=== PATIENT | female | born 1980 | race Caucasian/White ===

== ENCOUNTER → 2017-07-17 12:21 | Outpatient (CLI) | payer OTHER, SELFPAY ==
--- NOTE | 2017-07-17 12:24 | US_ITS ---
STUDY: ULTRASOUND TRANSVAGINAL CLINICAL: Female, 37 years old. Bleeding. TECHNIQUE: Transabdominal and Transvaginal COMPARISON: 02/12/2006. FINDINGS: Normal uterine size measuring 8.1 x 6.0 x 3.8 cm in maximal craniocaudal dimension. There are no myometrial masses however myometrium appears slightly heterogeneous and mild leiomyomatous changes not excluded.. Normal endometrial thickness measuring 9 mm. Endometrial echoes are hyperechoic. There are no endometrial masses, and there is no fluid in the endometrial cavity. Nabothian cyst of the uterine cervix. Normal right ovary, measuring 2.9 x 2.4 x 1.7 cm. There are multiple follicles without a dominant cyst. Normal left ovary, measuring 4.9 x 4.3 x 2.5 cm. There are left ovarian cysts measuring 2.4 and 2.6 cm. There is mild free fluid in the pelvis. Polycystic ovary disease: No. US/Pelvic (Non ) IMPRESSION: Left ovarian cysts measuring as much as 2.6 cm. Recommend follow-up in one or 2 menstrual periods. Cannot exclude mild heterogeneity of the uterine myometrium but without focal fibroid. Electronically Signed: Arsh Ward MD at 13:48 EDT , Service support ,
--- NOTE | 2017-07-17 14:34 | US_ITS ---
STUDY: ULTRASOUND TRANSVAGINAL CLINICAL: Female, 37 years old. Bleeding. TECHNIQUE: Transabdominal and Transvaginal COMPARISON: 02/12/2006. FINDINGS: Normal uterine size measuring 8.1 x 6.0 x 3.8 cm in maximal craniocaudal dimension. There are no myometrial masses however myometrium appears slightly heterogeneous and mild leiomyomatous changes not excluded.. Normal endometrial thickness measuring 9 mm. Endometrial echoes are hyperechoic. There are no endometrial masses, and there is no fluid in the endometrial cavity. Nabothian cyst of the uterine cervix. Normal right ovary, measuring 2.9 x 2.4 x 1.7 cm. There are multiple follicles without a dominant cyst. Normal left ovary, measuring 4.9 x 4.3 x 2.5 cm. There are left ovarian cysts measuring 2.4 and 2.6 cm. There is mild free fluid in the pelvis. Polycystic ovary disease: No. US/Transvaginal Non- IMPRESSION: Left ovarian cysts measuring as much as 2.6 cm. Recommend follow-up in one or 2 menstrual periods. Cannot exclude mild heterogeneity of the uterine myometrium but without focal fibroid. Electronically Signed: Arsh Ward MD at 13:48 EDT , Service support ,
== END ==
PROVIDERS: Family Provider Family Medicine; PCP Family Medicine; Visit Provider Obstetrics & Gynecology
DX: N83.202 Unspecified ovarian cyst, left side (principal); N93.0 Postcoital and contact bleeding
CPT/HCPCS: 76830; 76856; 93976

== ENCOUNTER → 2017-08-01 18:41 | Outpatient (CLI) | payer OTHER, SELFPAY ==
[2017-08-05 13:23] LABS: HPV Reflexed? NOT INDICATED
== END ==
PROVIDERS: Family Provider Family Medicine; PCP Family Medicine; Visit Provider Obstetrics & Gynecology
DX: Z01.419 Encounter for gynecological examination (general) (routine) without abnormal findings (principal)
CPT/HCPCS: 88175; G0145

== ENCOUNTER 2018-04-01 12:15 | Outpatient (RCR) | payer OTHER, SELFPAY ==
--- NOTE | 2017-05-17 07:59 | MASS.EVAL ---
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 She presents today with symptoms of chronic tension headaches as well as muscle tension through her neck and shoulders. The symptoms have been present for many years. She also reports experiencing stress. She uses massage and health care legal assistant to manage the symptoms. Medications: Flonase Goals: Decrease Headaches Decrease Muscle Tension Improve Cervical Range of Motion The first treatment consisted of a deep tissue massage to the upper body focusing on the neck and shoulders. The patient had general muscle tension and knots throughout the neck, shoulders and interscapular are. She responded very well to treatment, reporting a decrease in muscle tension and stress after treatment. The patient is to be seen one time a month for a total of 10 massotherapy visits. Stephanie Rain LMT
--- NOTE | 2018-04-18 11:16 | MASS.DISCH ---
Massage Therapy Discharge Summary: Initial Evaluation: 05/16/2017 Diagnosis: Chronic tension headaches No. of Visits: Date of last visit: 04/01/2018 Goals: Decreased frequency and intensity of headaches Decreased muscle tension Improved cervical range of motion This patient is being discharged from our care at the [facility]. Thank you, Stephanie Rain LMT
== END 2018-04-01 19:00 | disposition home or self-care (01) ==
LOC: MASS 12:15
PROVIDERS: Family Provider Family Medicine; PCP Family Medicine; Visit Provider Family Medicine
DX: G44.229 Chronic tension-type headache, not intractable (principal)
CPT/HCPCS: 97124

== ENCOUNTER → 2018-11-20 11:22 | Outpatient (CLI) | payer OTHER, SELFPAY ==
[2018-11-26 15:16] LABS: HPV Reflexed? NOT INDICATED
== END ==
PROVIDERS: Visit Provider Obstetrics & Gynecology
DX: Z12.4 Encounter for screening for malignant neoplasm of cervix (principal)
CPT/HCPCS: 88175; G0145

== ENCOUNTER → 2019-04-15 10:06 | Outpatient (CLI) | payer OTHER, SELFPAY ==
--- NOTE | 2019-04-15 10:09 | BI_ITS ---
MAMMOGRAPHY - BILATERAL SCREENING REASON FOR EXAM: Female, 39 years old. Routine annual screening examination. PERTINENT HISTORY: Non-contributory. TECHNIQUE: Digital bilateral breast joesph (3D mammographic acquisition) in the CC and MLO projections. 2-D mediolateral oblique (MLO) and craniocaudad (CC) views of both breasts were obtained. CAD: Full Field Digital Mammography with Computer Added Detection was performed. COMPARISON: None. Baseline examination. FINDINGS: Breast Composition: There are scattered areas of fibroglandular density. There are no dominant masses or suspicious calcifications. No other significant abnormalities are identified. BI/SCREEN MAMM (CAD) W/JOESPH BILAT IMPRESSION: Negative screening mammogram. Yearly followup mammogram recommended. (A) ASSESSMENT CATEGORY: BIRADS Category 1: Negative. A letter regarding these results will be sent to the patient by the facility within 30 days. Approximately 10% of breast cancers are not detected by mammography. A normal mammogram should not delay biopsy of a clinically suspicious abnormality. [id number] Electronically Signed: Poncho Allison, at 12:31 EST , Service support ,
== END ==
PROVIDERS: Family Provider Family Medicine; PCP Family Medicine; Referring Provider Obstetrics & Gynecology; Visit Provider Obstetrics & Gynecology
DX: Z12.31 Encounter for screening mammogram for malignant neoplasm of breast (principal)
CPT/HCPCS: 77063; 77067

== ENCOUNTER 2019-04-16 10:45 | Outpatient (RCR) | payer OTHER, SELFPAY ==
--- NOTE | 2018-06-12 11:30 | MASS.EVAL ---
Massage Therapy Evaluation: INITIAL EVALUATION: DATE: 06/12/18 PT NAME: KATIE KHALIL : 1980 V#: [id number] REFERRING PHYS: DR. 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 SHE WAS REFERRED TO [facility] FOR A MASSOTHERAPY EVALUATION BY DR. MUNOZ WITH THE DIAGNOSIS OF HEADACHES AND NECK PAIN. SHE PRESENTS TODAY WITH SYMPTOMS OF PAIN IN HER RIGHT SIDE OF HER NECK THAT ENDS A HEADACHE. SHE REPORTS OF NO PAIN BESIDE THE HEADACHE BUT JUST MORE STIFFNESS AND TIGHTNESS IN THE NECK. THE SYMPTOMS DUE TO STRESS AND POSTURE. RATES HER OVERALL HEALTH TO BE IN GOOD CONDITION WITH NO LIMITATIONS DURING HER DAILY ACTIVITIES. IS TAKING MAGNESIUM, FLONASE, BIOTIN, AND ALLIGN MEDICATIONS. OBJECTIVE: THE FIRST TREATMENT CONSISTED OF A MODERATE-DEEP TISSUE UPPER BODY MASSAGE. I FOCUSED ON THE CERVICAL AND THORACIC PARASPINALS , SCALENES, UPPER TRAPEZIUM, LEVATOR, RHOMBOIDS, AND SUBOCCIPITALS. NECK STRETCHES, TRIGGER POINT THERAPY, AND MUSCLE STRIPPING WERE PERFORMED. ASSESSMENT: MUSCLE TENSION WAS HIGH ON THE RIGHT SIDE BETWEEN THE NECK AND UPPER SHOULDER BLADE. MOST TENDERNESS WAS THE SUBOCCIPITALS, AND LEVATOR. I FEEL OVERALL THE STRESS LEVEL AND TENSION IN THE MUSCLES RELEASED POST THE MASSAGE. I FEEL THAT IS GREAT CANDIDATE FOR MASSOTHERAPY AT THIS TIME. PLAN: THE PLAN OF CARE WAS REVIEWED WITH THE PATIENT. THE PATIENT IS TO BE SEEN IN TWO WEEKS THEN ON A REGULAR MONTHLY BASIS FOR ONE HOUR SESSIONS OF MASSOTHERAPY.
--- NOTE | 2018-06-12 11:45 | MASS.EVAL_ITS ---
Massage Therapy Evaluation: INITIAL EVALUATION: DATE: 06/12/18 PT NAME: KATIE KHALIL : 1980 V#: [id number] REFERRING PHYS: DR. 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 SHE WAS REFERRED TO [facility] FOR A MASSOTHERAPY EVALUATION BY DR. MUNOZ WITH THE DIAGNOSIS OF HEADACHES AND NECK PAIN. SHE PRESENTS TODAY WITH SYMPTOMS OF PAIN IN HER RIGHT SIDE OF HER NECK THAT ENDS A HEADACHE. SHE REPORTS OF NO PAIN BESIDE THE HEADACHE BUT JUST MORE STIFFNESS AND TIGHTNESS IN THE NECK. THE SYMPTOMS DUE TO STRESS AND POSTURE. RATES HER OVERALL HEALTH TO BE IN GOOD CONDITION WITH NO LIMITATIONS DURING HER DAILY ACTIVITIES. IS TAKING MAGNESIUM, FLONASE, BIOTIN, AND ALLIGN MEDICATIONS. OBJECTIVE: THE FIRST TREATMENT CONSISTED OF A MODERATE-DEEP TISSUE UPPER BODY MASSAGE. I FOCUSED ON THE CERVICAL AND THORACIC PARASPINALS , SCALENES, UPPER TRAPEZIUM, LEVATOR, RHOMBOIDS, AND SUBOCCIPITALS. NECK STRETCHES, TRIGGER POINT THERAPY, AND MUSCLE STRIPPING WERE PERFORMED. ASSESSMENT: MUSCLE TENSION WAS HIGH ON THE RIGHT SIDE BETWEEN THE NECK AND UPPER SHOULDER BLADE. MOST TENDERNESS WAS THE SUBOCCIPITALS, AND LEVATOR. I FEEL OVERALL THE STRESS LEVEL AND TENSION IN THE MUSCLES RELEASED POST THE MASSAGE. I FEEL THAT IS GREAT CANDIDATE FOR MASSOTHERAPY AT THIS TIME. PLAN: THE PLAN OF CARE WAS REVIEWED WITH THE PATIENT. THE PATIENT IS TO BE SEEN IN TWO WEEKS THEN ON A REGULAR MONTHLY BASIS FOR ONE HOUR SESSIONS OF MASSOTHERAPY.
--- NOTE | 2019-04-17 11:10 | MASS.DISCH ---
Massage Therapy Discharge Summary: DATE: 04/17/2019 V#: [id number] PT. NAME: KATIE KHALIL : 1980 REF PHYS: THE PATIENT WAS SEEN FOR MASSOTHERAPY EVALUATION ON 06/12/2018 WITH A DIAGNOSIS OF HEADACHES AND NECK PAIN. THE PATIENT WAS TREATED WITH 8 SESSIONS OF MASSAGE CONSISTING OF DEEP TISSUE TO THE UPPER BODY. HER GOALS OF TREATMENT WERE MET AND AT THIS TIME I AM DISCHARGING THE PATIENT FROM OUR CARE AT THE [facility] FOR 2019.
== END 2019-04-16 19:00 | disposition home or self-care (01) ==
LOC: MASS 10:45
PROVIDERS: Family Provider Family Medicine; PCP Family Medicine; Referring Provider Family Medicine; Visit Provider Family Medicine
DX: G44.229 Chronic tension-type headache, not intractable (principal)
CPT/HCPCS: 97124

== ENCOUNTER 2019-05-02 14:07 | Emergency (ER) | payer OTHER, SELFPAY ==
[2019-05-02 14:07] VITALS: BP 129/65; PULSE 76; RESP 18; TEMP 36.4; O2SAT 99; BMI 23.0
--- NOTE | 2019-05-02 14:28 | ED.DCSUM_ITS ---
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 There were no needles involved. She noticed there was redness/blood, so she presents for evaluation. She was wearing her contacts at the time. She denies any changes in her vision compared with normal, which is not perfect she states. She denies any other injury. Past Medical History - Allergies and Home Meds Allergies/Adverse Reactions: Allergies No Known Allergies Allergy (Verified 05/02/19 14:10) Primary Care Physician: Valentino Sotomayor MD [Primary Care Provider] - Past Medical History: None Smoking Status: Never smoker Review of Systems Eyes: Reports: - - right eye pain. Denies: Visual changes - right, Diplopia Gastrointestinal: Denies: Nausea, Vomiting Physical Exam Visual Acuity: bilateral: 20/20 - OD, OS, OU Eyelid: Normal inspection, No foreign body Right Conjunctiva/Sclera: No foreign body, Subconjunctival hemorrhage - minor, focal, just lateral to the cornea; no dye streaming Left Conjunctiva/Sclera: Normal inspection Right Cornea: Normal inspection, No foreign body, No abrasion, Fluorescein dye uptake - minor at medial cornea around 4-5 O'clock, punctate, not abrasion/traumatic. Extraocular Motion: Normal exam, No pain, No palsy Pupils: Normal accomodation, PERRL Anterior chamber: Normal exam, Deep and quiet - without hyphema Vital Signs/Narrative: Vital Signs Temp Pulse Resp BP Pulse Ox 05/02/19 14:07 97.6 F L 76 18 129/65 H 99 Inital Vital Signs reviewed: Yes General: Well nourished, Well developed Head: Normocephalic, Atraumatic Neurological: Alert, Oriented x3, Cranial nerves II-XII grossly intact, Normal Strength, Normal Sensation, Normal Gait Psychological: Normal affect, Normal Mood Diagnostic/Tx/Re-eval - Medical Decision Making Exam consistent with conjunctival/scleral contusion without globe penetration. Patient is reassured. The cornea appears unremarkable except for some mild punctate dye uptake which may be some mild chronic keratitis. She took her contact out prior to fluorescein staining, the left and in for her visual acuities. She was advised to leave it out for the rest of the day, she has glasses use as needed, and she has an already scheduled eye appointment for about 4 or 5 days from now which I think is fine for follow-up. Supportive care, no antibiotic ointment should be needed. ED Disposition - Plan for ED Patient: Disposition: Home or Assisted Living Diagnosis: Contusion of right conjunctiva Instructions: CONTUSION, Eye Referrals: eye doctor [Other] (as scheduled)
[2019-05-02 15:23] VITALS: BP 122/86; PULSE 78; RESP 14; O2SAT 99
[2019-05-02] MEDS: Fluorescein 1 MG STRIP 1 STRIP RIGHT EYE (15:28)
[2019-05-02 15:36] LABS: HIV - WCH Non-Reactive (Nonreactive); Hepatitis B Surface Antibody Non-Reactive; Hepatitis B Surface Antigen Non-Reactive (Nonreactive); Hepatitis C Antibody Non-Reactive (Nonreactive)
== END 2019-05-02 15:29 | disposition home or self-care (01) ==
PROVIDERS: Emergency Provider Emergency Medicine; Family Provider Family Medicine; PCP Family Medicine
DX: S05.11XA Contusion of eyeball and orbital tissues, right eye, initial encounter (principal); W50.0XXA Accidental hit or strike by another person, initial encounter; Y93.9 Activity, unspecified; Y92.9 Unspecified place or not applicable
CPT/HCPCS: 86703; 86706; 86803; 87340; 99283; A4216

== ENCOUNTER 2020-04-15 13:15 | Outpatient (RCR) | payer OTHER, SELFPAY ==
--- NOTE | 2019-06-05 15:43 | MASS.EVAL ---
Massage Therapy Evaluation: Initial Evaluation Date: 06/05/2019 /Age: 1103/26/1979, 39 Diagnosis: Neck pain Headaches Goals: Decrease frequency and intensity of headaches Decrease muscle tension Decrease stress Assessment: Le is a good candidate for massage at this time. We have had success treating her symptoms in the past. Plan: To be seen one time per month or PRN for a total of 10 one hour sessions.
--- NOTE | 2020-04-15 14:25 | MASS.DISCH ---
Massage Therapy Discharge Summary: Initial Evaluation Date: 06/05/2019 Diagnosis: Neck Pain Headaches No. of Visits: 7 Date of last visit: 04/15/2020 This patient is being discharged from our care at the [facility]. Thank you, Stephanie Rain LMT
== END 2020-04-15 19:00 | disposition home or self-care (01) ==
LOC: MASS 13:15
PROVIDERS: Family Provider Family Medicine; PCP Family Medicine; Referring Provider Family Medicine; Visit Provider Family Medicine
DX: M54.2 Cervicalgia (principal); G89.29 Other chronic pain; R51 Headache
CPT/HCPCS: 97124

== ENCOUNTER → 2020-04-20 09:08 | Outpatient (CLI) | payer OTHER, SELFPAY ==
--- NOTE | 2020-04-20 09:10 | BI_ITS ---
MAMMOGRAPHY - BILATERAL SCREENING REASON FOR EXAM: Female, 40 years old. Routine annual screening examination. PERTINENT HISTORY: Non-contributory. TECHNIQUE: Digital bilateral breast joesph (3D mammographic acquisition) in the CC and MLO projections. 2-D mediolateral oblique (MLO) and craniocaudad (CC) views of both breasts were obtained. CAD: Full Field Digital Mammography with Computer Added Detection was performed. COMPARISON: Comparison is made with prior study dated 04/15/2019. FINDINGS: Breast Composition: There are scattered areas of fibroglandular density. There are no dominant masses or suspicious calcifications. No other significant abnormalities are identified. There has been no significant change since the prior study. BI/SCREEN MAMM (CAD) W/JOESPH BILAT IMPRESSION: Stable bilateral screening mammogram. Yearly follow-up mammogram recommended. (A) ASSESSMENT CATEGORY: BIRADS Category 1: Negative. A letter regarding these results will be sent to the patient by the facility within 30 days. Approximately 10% of breast cancers are not detected by mammography. A normal mammogram should not delay biopsy of a clinically suspicious abnormality. [id number] Electronically Signed: Poncho Allison, at 10:39 EST , Service support ,
== END ==
PROVIDERS: PCP Family Medicine; Referring Provider Family Medicine; Visit Provider Family Medicine
DX: Z12.31 Encounter for screening mammogram for malignant neoplasm of breast (principal)
CPT/HCPCS: 77063; 77067

== ENCOUNTER → 2021-01-11 14:38 | Outpatient (CLI) | payer OTHER, SELFPAY ==
[2021-01-17 11:45] LABS: HPV APTIMA, High Risk Negative (Negative)
== END ==
PROVIDERS: PCP Family Medicine; Visit Provider Obstetrics & Gynecology
DX: Z12.4 Encounter for screening for malignant neoplasm of cervix (principal)
CPT/HCPCS: 87624; 88175; G0145

== ENCOUNTER 2021-04-13 13:30 | Outpatient (RCR) | payer OTHER, SELFPAY ==
--- NOTE | 2020-05-20 08:05 | MASS.EVAL ---
Massage Therapy Evaluation: Initial Evaluation Date: 05/19/2020 /Age: 11 1980, 40 Diagnosis: Chronic Migraine Goals: Decrease migraines Decrease muscle tension Assessment: Lyric is a good candidate for massage at this time. We have had success treating her symptoms in the past. Plan: To be seen one time per month or PRN for a total of 10 one hour sessions.
--- NOTE | 2021-04-13 14:41 | MASS.DISCH ---
Massage Therapy Discharge Summary: Initial Evaluation Date: 05/19/20 Diagnosis: Chronic Migraine No. of Visits: 10 Date of last visit: 04/13/21 This patient is being discharged from our care at the [facility]. Thank you, Stephanie Rain LMT
== END 2021-04-13 19:00 | disposition home or self-care (01) ==
LOC: MASS 13:30
PROVIDERS: PCP Family Medicine; Referring Provider Family Medicine; Visit Provider Family Medicine
DX: G43.909 Migraine, unspecified, not intractable, without status migrainosus (principal)
CPT/HCPCS: 97124

== ENCOUNTER 2021-06-07 09:40 | Outpatient (CLI) | payer OTHER, SELFPAY ==
--- NOTE | 2021-06-07 09:43 | BI_ITS ---
MAMMOGRAPHY - BILATERAL SCREENING REASON FOR EXAM: Female, 41 years old. Routine annual screening examination. PERTINENT HISTORY: Non-contributory. TECHNIQUE: Digital bilateral breast joesph (3D mammographic acquisition) in the CC and MLO projections. 2-D mediolateral oblique (MLO) and craniocaudad (CC) views of both breasts were obtained. CAD: Full Field Digital Mammography with Computer Added Detection was performed. COMPARISON: Comparison is made with prior study dated 04/20/2020 and 04/15/2019. FINDINGS: Breast Composition: There are scattered areas of fibroglandular density. There are no dominant masses or suspicious calcifications. No other significant abnormalities are identified. There has been no significant change since the prior study. BI/SCRN MAMM (CAD)W/JOESPH BILAT IMPRESSION: Stable bilateral screening mammogram. Yearly follow-up mammogram recommended. (A) ASSESSMENT CATEGORY: BIRADS Category 1: Negative. A letter regarding these results will be sent to the patient by the facility within 30 days. Approximately 10% of breast cancers are not detected by mammography. A normal mammogram should not delay biopsy of a clinically suspicious abnormality. [id number] Electronically Signed: Poncho Allison MD at 10:51 EST ,
== END 2021-06-07 23:59 | disposition home or self-care (01) ==
PROVIDERS: PCP Family Medicine; Visit Provider Family Medicine
DX: Z12.31 Encounter for screening mammogram for malignant neoplasm of breast (principal)
CPT/HCPCS: 77063; 77067

== ENCOUNTER 2021-07-28 14:07 | Outpatient (CLI) | payer OTHER, SELFPAY ==
--- NOTE | 2021-07-28 17:44 | US_ITS ---
INDICATION: METRORRHAGIA EXAMINATION: Ultrasound US Pelvis Non-OB Complete TECHNIQUE: Transabdominal and transvaginal pelvic ultrasound was performed. Grayscale, spectral waveform, and color flow Doppler evaluation of the adnexa. COMPARISON: No recent comparison imaging. FINDINGS: UTERUS: The uterus measures 94 mL in volume, normal size. Heterogeneous myometrium with focal area of ill-defined decreased echogenicity roughly 13 x 13 x 12 mm suggesting left uterine body fibroid. No other myometrial mass exemplified. The endometrial stripe measures 12 mm in AP diameter. Small amount of heterogeneous low-level echoes seen within the endometrial cavity correlating with reported history of heavy bleeding. Cervix is normal in appearance with note of a nabothian cyst. No significant fluid in the endocervical canal. RIGHT OVARY: 9.3 mL in volume.. Non-enlarged, normal echogenicity. Normal peripheral follicles and color flow and vascular waveforms. LEFT OVARY: 19.5 mL in volume. Left ovary is enlarged by 2 cystic structures. The larger of which shows some internal low-level echoes suggesting hemorrhagic cyst are created follicle. This measures 12 x 13 x 15 mm. Slightly smaller left ovarian cystic structure shows anechoic signal consistent with simple cyst. Normal color flow and vascular waveforms seen in the left ovary. FREE FLUID: None. Distended urinary bladder for transabdominal imaging for total volume of 516 mL. No abnormally distended urinary bladder on transvaginal images, after voiding. US/Pelvic (Non ) IMPRESSION: Small amount of hyperechoic debris in the endometrial cavity likely representing blood products associated with menstruation. No pathologic endometrial stripe thickening uterine with the small amount of fluid in the endometrial cavity. Normal size uterus foot diffuse heterogeneous echogenicity and a single area of more focal, increased hypoechogenicity, suggesting uterine fibroid measuring 13 x 13 x 12 mm. Large left ovary with 2 cystic structures, one representing a simple cyst of other with some low-level internal echoes likely representing hemorrhagic cyst or recently ruptured follicle. This is considered a physiologic ovary. Electronically Signed: Bong Smyth DO at 23:54 EDT ,
--- NOTE | 2021-07-28 17:45 | US_ITS ---
INDICATION: METRORRHAGIA EXAMINATION: Ultrasound US Pelvis Non-OB Complete TECHNIQUE: Transabdominal and transvaginal pelvic ultrasound was performed. Grayscale, spectral waveform, and color flow Doppler evaluation of the adnexa. COMPARISON: No recent comparison imaging. FINDINGS: UTERUS: The uterus measures 94 mL in volume, normal size. Heterogeneous myometrium with focal area of ill-defined decreased echogenicity roughly 13 x 13 x 12 mm suggesting left uterine body fibroid. No other myometrial mass exemplified. The endometrial stripe measures 12 mm in AP diameter. Small amount of heterogeneous low-level echoes seen within the endometrial cavity correlating with reported history of heavy bleeding. Cervix is normal in appearance with note of a nabothian cyst. No significant fluid in the endocervical canal. RIGHT OVARY: 9.3 mL in volume.. Non-enlarged, normal echogenicity. Normal peripheral follicles and color flow and vascular waveforms. LEFT OVARY: 19.5 mL in volume. Left ovary is enlarged by 2 cystic structures. The larger of which shows some internal low-level echoes suggesting hemorrhagic cyst are created follicle. This measures 12 x 13 x 15 mm. Slightly smaller left ovarian cystic structure shows anechoic signal consistent with simple cyst. Normal color flow and vascular waveforms seen in the left ovary. FREE FLUID: None. Distended urinary bladder for transabdominal imaging for total volume of 516 mL. No abnormally distended urinary bladder on transvaginal images, after voiding. US/Transvaginal Non- IMPRESSION: Small amount of hyperechoic debris in the endometrial cavity likely representing blood products associated with menstruation. No pathologic endometrial stripe thickening uterine with the small amount of fluid in the endometrial cavity. Normal size uterus foot diffuse heterogeneous echogenicity and a single area of more focal, increased hypoechogenicity, suggesting uterine fibroid measuring 13 x 13 x 12 mm. Large left ovary with 2 cystic structures, one representing a simple cyst of other with some low-level internal echoes likely representing hemorrhagic cyst or recently ruptured follicle. This is considered a physiologic ovary. Electronically Signed: Bong Smyth DO at 23:54 EDT ,
== END 2021-07-28 23:59 | disposition home or self-care (01) ==
LOC: US 14:09
PROVIDERS: PCP Family Medicine; Visit Provider Family Medicine
DX: N92.1 Excessive and frequent menstruation with irregular cycle (principal)
CPT/HCPCS: 76830; 76856

== ENCOUNTER 2021-08-02 09:24 | Outpatient (CLI) | payer OTHER, SELFPAY ==
[2021-08-02 09:39] LABS: Absolute Neutrophil Count 4.2 X10^3/uL (2.0-7.7); Basophil# 0.06 X10^3/uL; Basophil% 0.9 % (0-1); Eosinophil# 0.29 X10^3/uL; Eosinophils% 4.2 % (0-5); Hematocrit 37.6 % (37-47); Hemoglobin 12.2 g/dL (12.0-15.0); Lymphocyte % 27.5 % (19-41); Mean Corp Hgb Conc 32.4 g/dL (32-36); Mean Corpuscular Volume 83.2 fL (81-99); Mean Platelet Vol. 8.7 fl (6.2-12.0); Monocyte# 0.51 X10^3/uL; Monocyte% 7.4 % (0-10); NRBC Flagged by Analyzer 0 % (0-5); Neutrophil # 4.15 X10^3/uL (2.7-7.7); Neutrophil % 59.9 % (47-70); Platelet Count 263 K/mm3 (150-450); RBC Distribution Width CV 14.4 % (11.6-14.6); RBC Distribution Width SD 43.8 fl (35.1-43.9); Red Blood Count 4.52 M/mm3 (4.2-5.4); White Blood Count 6.9 K/mm3 (4.4-11.0)
[2021-08-02 10:17] LABS: Thyroid Stim Hormone (TSH) 1.48 uIU/mL (0.358-3.74)
== END 2021-08-02 23:59 | disposition home or self-care (01) ==
LOC: LAB 09:26
PROVIDERS: PCP Family Medicine; Visit Provider Family Medicine
DX: N92.1 Excessive and frequent menstruation with irregular cycle (principal)
CPT/HCPCS: 36415; 84443; 85025

== ENCOUNTER 2021-10-13 05:55 | Day surgery (SDC) | payer OTHER, SELFPAY ==
[2021-10-13] VITALS (7 sets, daily range): BP systolic 101–108; BP diastolic 61–75; PULSE 48–68; RESP 16–18; TEMP 36.9–37.3; O2SAT 16–100; BMI 24.2
[2021-10-13 06:18] LABS: Internal QC Validated? YES +Cl - CLEAR BKGD; Pregnancy, Urine Negative Negative
--- NOTE | 2021-10-13 06:51 | HP.PCM.OB_ITS ---
History and Physical Date of Admission: 10/13/21 HPI: Heavy menses, soaking through pants. Interfering with daily life. MEDICAL HISTORY: denies ALLERGIES: NKDA MEDICATIONS HISTORY: Patient is also takin. Multi For Her 18 mg iron-600 mcg-80 mcg tablet, daily 2. Flonase Allergy Relief 50 mcg/actuation nasal spray,suspension, As Directed SURGICAL HISTORY: 1. 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 T and A CHILD 3. [place] Teeth Removal, age 20 4. 11/22/2012 ORIF on R tibfib 5. 12/25/2012 IND MENSTRUAL HISTORY: LMP Known?- DefiniteAmount/Duration - 3-4 DAYS, Regularity - heavy and Regular, Frequency - monthly days, LMP - 07/14/21, Age Onset Menarche - 13 PAST PREGNANCIES: Total Pregnancies - 3; Full Term Pregnancies - 3; Premature - 0; Abortions, Induced - 0; Abortions, Spontaneous - 0; Ectopics - 0; Multiple Births - 0; Living Children - 3 FAMILY HISTORY: Father - Heart disorder; Mother - FH: Hypertension; Sister - Unknown Disease; SOCIAL HISTORY: Alcohol Use - drinks occasionally Smoking - smoked x 3 years, QUIT in 2006 Drugs - denies REVIEW OF SYSTEMS: GENERAL - Denies fever, or chills SKIN - Denies skin changes EYES - Denies visual changes EARS - Denies difficulty hearing NOSE - Denies nasal congestion or bleeding MOUTH - Denies sore throat or difficulty swallowing NECK - Denies pain or swelling RESPIRATORY - Denies shortness of breath or wheezing CARDIOVASCULAR - Denies palpitations or chest pain GASTROINTESTINAL - Denies nausea, vomiting, diarrhea, constipation GENITOURINARY - Denies dysuria, frequency of urination, incontinence of urine MUSCULOSKELETAL - Denies joint or muscle pain NEUROLOGICAL - Denies localized numbness or weakness PSYCHIATRIC - Denies depression or anxiety ENDOCRINE - Denies heat or cold intolerance, weight loss or gain HEMATO-IMMUNOLOGIC - Denies excesive bleeding with cuts PHYSICAL EXAMINATION BP- 110/62 Sitting, Right arm, regular cuff Weight- 135.0 lbs Height- 62.75 inch BMI:24.10 CONSTITUTIONAL - NAD, well nourished, and well developed SKIN - No rash, lesions, or ulcers HEENT - Normocephalic, PERRLA, EOMI LUNGS - normal respiratory rate and rhythm EXTREMITIES - No edema or calf tenderness NEUROLOGICAL - Cranial nerves II-XII grossly intact PSYCHIATRIC - A and O to time, place, person, mood and affect ASSESSMENT: 1. Menstrual Disorder 2. Excessive And Frequent Menstruation With Regular Cycle PLAN BY DIAGNOSIS: 1. Excessive And Frequent Menstruation With Regular Cycle Over the past several months pt has had heavier menses. Continue to be 3 days in length, monthly. Changes tampon/pad every hour or two. Soaking through pants at work. Planned for hysteroscopy, dilation and curettage, endometrial ablation.
[2021-10-13] MEDS: Lactated Ringers 1,000 ML 15 ML IV (07:23)
--- NOTE | 2021-10-13 07:30 | EMB_PTH ---
PATIENT: KATIE KHALIL LOC: [facility] U#:[id number] AGE/SX: 41/F ROOM: RE10/13/[address]: Dr. Shell Spaulding DO : 1980 BED: DIS: 10/13/2021 SPEC #: [id number] RECD: 10/13/21 11:06 STATUS: DASHA SLADE #: [id number] EFLIX: 10/13/21 07:[address]: Shell Spaulding DEPT: SURGICAL PATHOLOGY RECD BY: Crystal Sandhu ENTERED: 10/13/21 12:56 SP TYPE: ENDOM BX/C DREA DR: Dr. Sera Peña MD Tissues: Endometrium, NOS Procedures: Surgery Specimen Level IV HEADER OPERATION: Hysteroscopy, D & C Rosalba PRE-OP DIAGNOSIS: Menstrual disorder; excessive and frequent menstruation with regular cycle TISSUE SUBMITTED: Endometrial curettings MICROSCOPIC DIAGNOSIS Endometrial curettings: Secretory endometrium. SJ:sharif 10/14/2021 MICROSCOPIC DESCRIPTION Slides are reviewed. GROSS DESCRIPTION Received in fixative is one container labeled with the patient's name and designated endometrial curettings. The specimen consists of multiple fragments of pink hemorrhagic soft tissue that in aggregate measure 3 x 2.5 x 0.3 cm. The specimen is totally submitted in one cassette. / SJ:sharif 10/13/2021 TC:4 CPT: 50583
--- NOTE | 2021-10-13 07:33 | PCM.OPRPT ---
Report of Operation Date of Procedure: 10/13/21 Pre-Operative Diagnosis: Abnormal uterine bleeding, menorrhagia Post-Operative Diagnosis: Abnormal uterine bleeding, menorrhagia Surgery/Procedure Performed:: Hysteroscopy, dilation and curettage, Rosalba endometrial ablation Description of Surgical Findings:: Normal-appearing external genitalia. Normal-appearing endometrial cavity, no fibroids or polyps. Type of Anesthesia: MAC Specimen's removed: Endometrial curettings Estimated Blood Loss (mL): 5 cc Fluids Replaced: 600cc Description of Procedure: Indication/risk/benefits: 41-year-old female with menorrhagia and abnormal uterine bleeding plan for hysteroscopy, dilation curettage, endometrial ablation with Rosalba. All risk, benefits, alternatives discussed with patient. Risks include but are not limited to: Risk of bleeding twin transfusion, infection, injury to surrounding tissue including bowel/bladder/uterine perforation, VTE, ICU admission. Patient aware and consented. Procedure: Patient taken to the operating room, MAC anesthesia induced. Region of poison missael covered right inner thigh. Patient placed in the dorsal lithotomy and prepped and draped in the usual sterile fashion. Weighted speculum placed in posterior vagina and Sun retractor used to visualize the cervix. Anterior lip of the cervix grasped with single-tooth tenaculum. Cervix sequentially dilated. Hysteroscope placed through cervical canal and endometrial cavity examined. Cavity length 8 cm, cervical length 4 cm. Endometrial curettings completed in a 360 degree manner. Rosalba device open. Rosalba device placed into the endometrial cavity, deployed. Passed cavity assessments. Ablation completed. Rosalba device removed. Single-tooth tenaculum removed. Cervix hemostatic, weighted speculum removed. At the end of the procedure all needle, lap, sponge counts correct x2. Urine output: 10 cc Complications None
--- NOTE | 2021-10-13 07:59 | DCINST_ITS ---
Discharge Instructions Diet Discharge Diet: No restrictions Activity Discharge Activity: Return to Normal Activity and May Shower May resume sexual activity in: 2 weeks Weight Bearing Status: Weight bearing as tolerated Lifting Restrictions: None Dressing / Incision Call your doctor if you observe: Fever of 101 or Higher, Change in Color, Inability to urinate, Using more than 1 pad per hour, Shortness of breath, Dizziness, Swelling in the ankles, Chest pain and Calf discomfort Follow Up Care Please Follow Up With: Shell Spaulding DO When: 1-2 week postoperative visit Test Results: Test results from this visit will be discussed in further detail at your follow- up appointment, if applicable. Discharge Plan Admission Primary Reason for Your Visit: Ablation Attending Provider: Shell Spaulding Primary Care Provider: Sera Peña Discharge Orders/Prescriptions Prescriptions: No Action fluticasone propionate [Flonase Allergy Relief] 50 mcg/actuation [place],Suspension 1 spray INTRANASAL DAILY prednisone 10 mg Tablet 10 mg PO DAILY Rx Instructions: ON DAY TWO 4 TABLETS TODAY AT SOME POINT. Referrals / Follow Up: Sera Peña MD [Primary Care Provider] - Disposition Disposition (needs filled in before D/C Order can be placed): Home, Self Care
[2021-10-13] MEDS: HYDROcodone Bitartrate/Apap 5/325 Tablet PO (08:59)
== END 2021-10-13 09:40 | disposition home or self-care (01) ==
LOC: SDC 05:57 → AC 05:59
PROVIDERS: Anesthesiology; PCP Family Medicine; Referring Provider Family Medicine; Visit Provider Student in an Organized Health Care Education/Training Program
PROC: 0U5B8ZZ Destruction of Endometrium, Via Natural or Artificial Opening Endoscopic (ICD-10-PCS; CPT 58558; principal; 2021-10-13 07:15)
DX: N92.0 Excessive and frequent menstruation with regular cycle (principal); Z87.891 Personal history of nicotine dependence
CPT/HCPCS: 58558; 81025; 88305; J7120

== ENCOUNTER → 2022-06-09 | Outpatient (CLI) | payer OTHER, SELFPAY ==
--- NOTE | 2022-06-09 11:41 | BI_ITS ---
MAMMOGRAPHY - BILATERAL SCREENING REASON FOR EXAM: Female, 42 years old. Routine annual screening examination. PERTINENT HISTORY: Non-contributory. TECHNIQUE: Digital bilateral breast joesph (3D mammographic acquisition) in the CC and MLO projections. 2-D mediolateral oblique (MLO) and craniocaudad (CC) views of both breasts were obtained. CAD: Full Field Digital Mammography with Computer Added Detection was performed. COMPARISON: Comparison is made with prior examination of May 2021 and 04/20/2020. FINDINGS: Breast Composition: There are scattered areas of fibroglandular density. There are no dominant masses or suspicious calcifications. No other significant abnormalities are identified. There has been no significant change since the prior study. BI/SCRN MAMM (CAD)W/JOESPH BILAT IMPRESSION: Stable bilateral screening mammogram. Yearly follow-up mammogram recommended. (A) ASSESSMENT CATEGORY: BIRADS Category 1: Negative. A letter regarding these results will be sent to the patient by the facility within 30 days. Approximately 10% of breast cancers are not detected by mammography. A normal mammogram should not delay biopsy of a clinically suspicious abnormality. [id number] Electronically Signed: Poncho Allison MD at 13:38 EST ,
== END | disposition home or self-care (01) ==
PROVIDERS: PCP Family Medicine; Visit Provider Family Medicine
DX: Z12.31 Encounter for screening mammogram for malignant neoplasm of breast (principal)
CPT/HCPCS: 77063; 77067

== ENCOUNTER → 2023-06-21 | Outpatient (CLI) | payer OTHER, SELFPAY ==
--- NOTE | 2023-06-21 09:59 | BI_ITS ---
MAMMOGRAPHY - BILATERAL SCREENING REASON FOR EXAM: Female, 43 years old. Routine annual screening examination. PERTINENT HISTORY: Non-contributory. TECHNIQUE: Digital bilateral breast joesph (3D mammographic acquisition) in the CC and MLO projections. 2-D mediolateral oblique (MLO) and craniocaudad (CC) views of both breasts were obtained. CAD: Full Field Digital Mammography with Computer Added Detection was performed. COMPARISON: Comparison is made with prior study dated June 09, 2022 and May 2021. FINDINGS: Breast Composition: There are scattered areas of fibroglandular density. There are no dominant masses or suspicious calcifications. No other significant abnormalities are identified. There has been no significant change since the prior study. BI/SCRN MAMM (CAD)W/JOESPH BILAT IMPRESSION: Stable bilateral screening mammogram. Yearly follow-up mammogram recommended. (A) ASSESSMENT CATEGORY: BIRADS Category 1: Negative. A letter regarding these results will be sent to the patient by the facility within 30 days. Approximately 10% of breast cancers are not detected by mammography. A normal mammogram should not delay biopsy of a clinically suspicious abnormality. [id number] Electronically Signed: Poncho Allison MD at 13:15 EST ,
== END | disposition home or self-care (01) ==
LOC: OPBI 09:57
PROVIDERS: PCP Family Medicine; Referring Provider Family Medicine; Visit Provider Family Medicine
DX: Z12.31 Encounter for screening mammogram for malignant neoplasm of breast (principal)
CPT/HCPCS: 77063; 77067

== ENCOUNTER → 2024-07-24 | Outpatient (CLI) | payer OTHER, SELFPAY ==
--- NOTE | 2024-07-24 16:11 | BI_ITS ---
EXAM: SCRN MAMM (CAD)W/JOESPH BILAT DATE: 07/24/2024 CLINICAL HISTORY: F, Age 44 y/o , SCREENING No family history. BREAST CANCER RISK ASSESSMENT: Not assessed TECHNIQUE: Bilateral screening digital breast tomosynthesis with 2D and 3D images. Computer aided detection. COMPARISON: Prior exam(s) dated June 21, 2023.. FINDINGS: TISSUE DENSITY: The breast tissue is composed of scattered area of fibroglandular density. Bilateral Breast Mammographic Findings: No significant masses, calcifications or other abnormalities are identified. BI/SCRN MAMM (CAD)W/JOESPH BILAT IMPRESSION: Right Breast: BIRADS 1 NEGATIVE. Left Breast: BIRADS 1 NEGATIVE. OVERALL FINAL ASSESSMENT: BIRADS 1 NEGATIVE RECOMMENDATION: Routine annual follow-up in 1 Year A letter with findings and recommendations will be mailed to the patient. Reading Location: [id number]
== END | disposition home or self-care (01) ==
LOC: OPBI 16:09
PROVIDERS: PCP Family Medicine; Referring Provider Family Medicine; Visit Provider Family Medicine
DX: Z12.31 Encounter for screening mammogram for malignant neoplasm of breast (principal)
CPT/HCPCS: 77063; 77067